=== PATIENT | male | born 1995 | race Hispanic/Latino ===

== ENCOUNTER 2018-06-08 00:15 | Emergency (ER) | payer SELFPAY ==
[2018-06-08 00:33] VITALS: RESP 17; O2SAT 100
[2018-06-08] MEDS ORDERED: Silver Nitrate Topical - Stick TOP ONE (00:48)
--- NOTE | 2018-06-08 01:07 | ED PDOC ---
Arrival/HPI - General Chief Complaint: Male Genitourinary Time Seen by Provider: 06/08/18 00:35 Historian: Patient - History of Present Illness Narrative History of Present Illness (Text): 06/08/18 01:04 22 year old male, with no significant past medical history, presents to the emergency department for evaluation of bleeding from the area of the penile shaft. Patient states this has happened to him once before due to a small rupture of a vein. Patient states he was exercising at the time and thinks he may have rubbed the area. Patient states the bleeding has since stopped. Patient denies any fevers, chills, headache, dizziness, chest pain, shortness of breath, cough, abdominal pain, nausea, vomiting, diarrhea, back pain, neck pain, urinary/bowel changes, or any other complaint. Time/Duration: Prior to Arrival Context: Exertion Past Medical History - Provider Review Nursing Documentation Reviewed: Yes - Infectious Disease Hx of Infectious Diseases: None - Cardiac Hx Cardiac Disorders: No - Psychiatric Hx Substance Use: No - Anesthesia Hx Anesthesia: No Family/Social History - Physician Review Nursing Documentation Reviewed: Yes Family/Social History: No Known Family HX Smoking Status: Heavy Smoker > 10 Cigarettes Daily Hx Alcohol Use: No Hx Substance Use: No Allergies/Home Meds Allergies/Adverse Reactions: Allergies No Known Allergies Allergy (Unverified 06/08/18 00:47) Review of Systems - Physician Review All systems were reviewed & negative as marked: Yes - Review of Systems Constitutional: absent: Fevers, Night Sweats Respiratory: absent: SOB, Cough Cardiovascular: absent: Chest Pain Gastrointestinal: absent: Abdominal Pain, Diarrhea, Nausea, Vomiting Genitourinary Male: Other (bleeding wound on penile shaft). absent: Urinary Output Changes Musculoskeletal: absent: Back Pain, Neck Pain Neurological: absent: Headache, Dizziness Physical Exam Vital Signs Reviewed: Yes Vital Signs Temp Pulse Resp BP Pulse Ox 06/08/18 00:31 98.6 F 69 17 125/64 100 Temperature: Afebrile Blood Pressure: Normal Pulse: Regular Respiratory Rate: Normal Appearance: Positive for: Well-Appearing, Non-Toxic, Comfortable Pain Distress: None Mental Status: Positive for: Alert and Oriented X 3 - Systems Exam Head: Present: Atraumatic, Normocephalic Genitourinary Male: Present: Other (Pinpoint area of dried blood on penile shaft overlining superficial vein; No active bleeding) Skin: Present: Warm, Dry, Normal Color Psychiatric: Present: Alert, Oriented x 3, Normal Insight, Normal Concentration Medical Decision Making ED Course and Treatment: 06/08/18 01:10 Impression: 22 year old male presents to the emergency department with small wound on penile shaft. Plan: -- Silver Nitrate strip -- Reassess and disposition Prior Visits: Notes and results from previous visits were reviewed. Progress Notes: 06/08/18 01:10 In emergency department there was no bleeding of the area. Patient has had area cauterized with silver nitrate strip. Steri-strip applied for wound protection. - Medication Orders Current Medication Orders: Discontinued Medications Silver Nitrate (Silver Nitrate Topical Stick) 1 swa TOP ONCE ONE Stop: 06/08/18 00:49 Last Admin: 06/08/18 00:55 Dose: 1 swa - Scribe Statement The provider has reviewed the documentation as recorded by the Jefryibale Carrasco Provider Scribe Attestation: All medical record entries made by the Scribe were at my direction and personally dictated by me. I have reviewed the chart and agree that the record accurately reflects my personal performance of the history, physical exam, medical decision making, and the department course for this patient. I have also personally directed, reviewed, and agree with the discharge instructions and disposition. Disposition/Present on Arrival - Present on Arrival Any Indicators Present on Arrival: No History of DVT/PE: No History of Uncontrolled Diabetes: No Urinary Catheter: No History of Decub. Ulcer: No History Surgical Site Infection Following: None - Disposition Have Diagnosis and Disposition been Completed?: Yes Diagnosis: Skin tear Disposition: HOME/ ROUTINE Disposition Time: :22 Patient Plan: Discharge Condition: GOOD Additional Instructions: Avoid rubbing or scratching the affected area/avoid any penile erection next few days/follow up with your doctor Forms: [employer] (Uzbek)
[2018-06-08 01:50] VITALS: BP 120/61; PULSE 72; TEMP 98.2
== END 2018-06-08 01:50 | disposition home or self-care (01) ==
LOC: ED 00:15
DX: S31.21XA Laceration without foreign body of penis, initial encounter (principal); X58.XXXA Exposure to other specified factors, initial encounter; Y92.9 Unspecified place or not applicable